=== PATIENT | female | born 1980 | race American Indian/Alaskan Native ===

== ENCOUNTER → 2017-04-26 | Outpatient (CLI) | payer MEDICAID | LOC: SLR 11:00 | PROVIDERS: ATTEND Otolaryngology | DX: G47.30 Sleep apnea, unspecified (principal) | CPT/HCPCS: G0399 ==

== ENCOUNTER 2018-02-19 11:00 | Outpatient (CLI) | payer MEDICAID | END 2018-02-19 11:01 | disposition home or self-care (01) | LOC: SLR 11:00 | PROVIDERS: ATTEND Otolaryngology | DX: G47.30 Sleep apnea, unspecified (principal); G47.10 Hypersomnia, unspecified; E66.9 Obesity, unspecified | CPT/HCPCS: 95810 ==

== ENCOUNTER 2018-07-27 09:04 | Outpatient (CLI) | payer MEDICAID ==
[2018-07-31 15:08] LABS: Vitamin D, 25-OH, D2 9 ng/mL
== END 2018-07-27 09:05 | disposition home or self-care (01) ==
LOC: LAB 09:04
PROVIDERS: ATTEND Internal Medicine
DX: E55.9 Vitamin D deficiency, unspecified (principal); E66.01 Morbid (severe) obesity due to excess calories
CPT/HCPCS: 36415; 82306; 82607

== ENCOUNTER 2018-08-14 05:50 | Day surgery (SDC) | payer MEDICAID ==
[2018-08-14] MEDS ORDERED: NACL 0.9% 1000 ML 1,000 ML IV SCH (08:00)
[2018-08-14] MEDS ORDERED: VERSED ONE (08:08)
[2018-08-14] MEDS ORDERED: DIPRIVAN 10 MG/ML IV ONE (08:08)
--- NOTE | 2018-08-14 08:29 | Anesthesia Consultation ---
Anesthesia Consult and Med Hx Date of service: 08/14/18 - Airway Anesthetic Teeth Evaluation: Good ROM Head & Neck: Adequate Mental/Hyoid Distance: Adequate Mallampati Class: Class II Intubation Access Assessment: Probably Good - Pre-Operative Health Status ASA Pre-Surgery Classification: ASA3 Proposed Anesthetic Plan: MAC - Cardiovascular System Hx Hypertension: Yes - Other Systems Hx Obesity: Yes
--- NOTE | 2018-08-14 08:29 | Anesthesia Day of Surgery ---
Anesthesia Day of Surgery - Day of Surgery Patient Examined: Yes Patient H&P Reviewed: Yes Patient is NPO: Yes
[2018-08-14] MEDS ORDERED: XYLOCAINE MPF 2% ONE (08:30)
[2018-08-14 09:02] VITALS: BP 128/86
--- NOTE | 2018-08-14 13:44 | Operative Report ---
SURGEON: Sarthak Solares MD [employer]ER: Nely Fountain MD PREOPERATIVE DIAGNOSIS: Morbid obesity. POSTOPERATIVE DIAGNOSIS: Morbid obesity. PROCEDURE: EGD with biopsies. ANESTHESIA: MAC. COMPLICATIONS: None. SPECIMENS: Antral biopsies. BLEEDING: Minimal. INDICATIONS: The patient is a 38-year-old female with a history of morbid obesity. She is here for preoperative endoscopy in preparation for weight loss surgery. Informed consent was obtained. DESCRIPTION OF PROCEDURE: The patient was brought to the GI suite where she was placed in the left lateral decubitus position and underwent MAC anesthesia. A bite block was placed, and a time-out was called. A standard adult gastroscope was inserted into the oropharynx, down the esophagus, into the stomach. The pylorus was intubated and the duodenum examined up to the level of D1. There were no abnormalities. On withdrawal into the stomach in retroflexion view, there was no hiatal hernia. Antral biopsies were taken for H. pylori. The air and saliva was suctioned out. The patient tolerated the procedure well with no immediate complications and was transferred to the PACU in stable condition. FINDINGS: Normal EGD. JOB# [id number] [facility]
== END 2018-08-14 05:51 | disposition home or self-care (01) ==
LOC: GIO 05:50
PROVIDERS: ATTEND Specialist
DX: K29.50 Unspecified chronic gastritis without bleeding (principal); K30 Functional dyspepsia; E66.01 Morbid (severe) obesity due to excess calories; I10 Essential (primary) hypertension; B96.81 Helicobacter pylori [H. pylori] as the cause of diseases classified elsewhere; Z68.42 Body mass index [BMI] 45.0-49.9, adult; Z79.899 Other long term (current) drug therapy
CPT/HCPCS: 43239; 81025; 88305; 88342; J2250; J2704; J7030

== ENCOUNTER 2018-08-21 08:36 | Inpatient (IN) | payer MEDICAID ==
--- NOTE | 2018-08-20 12:05 | Anesthesia Consultation ---
Anesthesia Consult and Med Hx Date of service: 08/21/18 - Airway Anesthetic Teeth Evaluation: Good ROM Head & Neck: Adequate Mental/Hyoid Distance: Adequate Mallampati Class: Class II Intubation Access Assessment: Good - Pre-Operative Health Status ASA Pre-Surgery Classification: ASA3 Proposed Anesthetic Plan: General - Pulmonary Hx Asthma: Yes Hx Sleep Apnea: No (Neg sleep study) - Central Nervous System Hx Seizures: No (Migraines) Hx Back Pain: Yes Hx Psychiatric Problems: No - Gastrointestinal Hx Gastroesophageal Reflux Disease: Yes - Endocrine Hx Non-Insulin Dependent Diabetes: Yes (PRE-diabetes) - Hematic Hx Anemia: Yes - Other Systems Hx Cancer: No
[2018-08-20 12:10] LABS: Basophils % (Auto) 0.7 % (0.0-1.8); Eosinophils # (Auto) 0.1 K/mm3 (0.0-0.4); Eosinophils % (Auto) 2.7 % (0.0-4.3); Hematocrit 36.2 % (30.3-42.9); Lymphocytes # (Auto) 1.9 K/mm3 (1.2-5.4); Lymphocytes % (Auto) 43.5 % (13.4-35.0); Mean Corpuscular HGB Conc 33 % (30-34); Mean Corpuscular Volume 87 fl (79-97); Monocytes # (Auto) 0.3 K/mm3 (0.0-0.8); Monocytes % (Auto) 5.7 % (0.0-7.3); Platelet Count 287 K/mm3 (140-440); Red Blood Count 4.18 M/mm3 (3.65-5.03); Red Cell Distribution Width 14.3 % (13.2-15.2)
[2018-08-20 12:27] LABS: Alanine Aminotransferase 9 units/L (7-56); Chol/HDL Ratio 2.65 %; HDL Cholesterol 75 mg/dL (40-59); LDL Cholesterol,Direct 123 mg/dL (50-130)
[2018-08-20 13:09] LABS: BUN/Creatinine Ratio 11; Blood Urea Nitrogen 10 mg/dL (7-17); Hemolysis Index 7
[~2018-08-21 08:36] MED LIST: LACTATED RINGERS 1,000 ML IV SCH; MARCAINE-EPI 0.5%-1:200,000 INFILTRATI ONE; NACL 0.9% IR ONE; SUBLIMAZE IV PRN; TRANSDERM-SCOP TD NR; XYLOCAINE 1% 20 mL INFILTRATI ONE; ZOFRAN IV PRN
--- NOTE | 2018-08-21 09:52 | Anesthesia Day of Surgery ---
Anesthesia Day of Surgery - Day of Surgery Patient Examined: Yes Patient H&P Reviewed: Yes Patient is NPO: Yes
[2018-08-21] MEDS: LACTATED RINGERS 1,000 ML IV SCH ×2 (10:00→23:15)
[2018-08-21] MEDS ORDERED: SUBLIMAZE ONE ×2 (10:10→14:12)
[2018-08-21] MEDS ORDERED: XYLOCAINE MPF 2% ONE (10:10)
[2018-08-21] MEDS ORDERED: DECADRON ONE (10:10)
[2018-08-21] MEDS ORDERED: ZEMURON IV ONE (10:10)
[2018-08-21] MEDS ORDERED: DIPRIVAN 10 MG/ML IV ONE (10:11)
[2018-08-21] MEDS ORDERED: XYLOCAINE 1% 20 mL ONE ×2 (10:25→13:47)
[2018-08-21] MEDS ORDERED: MARCAINE-EPI 0.5%-1:200,000 INFILTRATI ONE ×3 (10:25→13:47)
[2018-08-21] MEDS ORDERED: ZOFRAN IV PRN (10:30)
[2018-08-21] MEDS ORDERED: NORCO PO PRN (10:30)
[2018-08-21] MEDS ORDERED: REGLAN IV PRN (10:30)
[2018-08-21] MEDS ORDERED: FLAGYL 500 MG/100 ML 500 MG/100 ML BAG IV NR (10:30)
[2018-08-21] MEDS ORDERED: APRESOLINE IV PRN (10:30)
[2018-08-21] MEDS ORDERED: ANCEF/STERILE WATER 2 GM/20 ML 2 GM/20 ML SYRINGE IV NR (10:30)
[2018-08-21] MEDS ORDERED: LOVENOX SUB-Q NR (10:30)
[2018-08-21] MEDS ORDERED: TRANSDERM-SCOP TD SCH (11:00)
[2018-08-21] MEDS ORDERED: WATER FOR IRRIG STERILE IR ONE (13:19)
[2018-08-21] MEDS ORDERED: NACL 0.9% IR ONE ×2 (13:25)
[2018-08-21] MEDS ORDERED: XYLOCAINE 1% 20 mL INFILTRATI ONE (13:25)
[2018-08-21] MEDS ORDERED: DILAUDID ONE (14:02)
[2018-08-21] MEDS ORDERED: BLOXIVERZ ONE (14:55)
[2018-08-21] MEDS ORDERED: ROBINUL ONE (14:55)
[2018-08-21] MEDS: DILAUDID IV PRN ×4 (15:20→22:54)
[2018-08-21] MEDS ORDERED: DEMEROL ONE (15:54)
[2018-08-21] MEDS: TORADOL IV SCH ×3 (17:00→22:55)
--- NOTE | 2018-08-21 17:33 | Post Anesthesia Evaluation ---
- Post Anesthesia Evaluation Patient Participated: Yes Airway Patent: Yes Stable Respiratory Function: Yes Nausea/Vomiting: No Temp > 96.8F: Yes Pain Manageable: Yes Adequeate Hydration: Yes Anesthesia Complications: No
--- NOTE | 2018-08-21 19:35 | Operative Report ---
SURGEON: Sarthak Solares MD ASSISTANTS: Nely Fountain MD, Fellow; Keven Mas MD, CSA. PREOPERATIVE DIAGNOSIS: Morbid obesity. POSTOPERATIVE DIAGNOSIS: Morbid obesity. OPERATIONS: 1. Laparoscopic Imtiaz-en-Y gastric bypass, 150 cm antecolic antegastric. 2. Upper endoscopy. ANESTHESIA: General endotracheal anesthesia. COMPLICATIONS: None. BLEEDING: Less than 15 mL. SPECIMENS: None. INDICATIONS: The patient is a 38-year-old female with a history of morbid obesity. She has undergone preoperative bariatric workup and presents for her planned operation. The risks, complications and alternatives have been explained to the patient and informed consent was obtained. DESCRIPTION OF PROCEDURE: The patient was brought to the operating room where she was placed in the supine position and underwent general endotracheal intubation. She received preoperative antibiotics and DVT prophylaxis. She was prepped and draped in the usual sterile fashion and then a time-out was called to ensure proper patient, indication, operation. Local analgesia was injected around the umbilicus and then a small stab incision was made at the base with insertion of a Veress needle. I was unable to get appropriate insufflation pressures; therefore, this was changed to the left upper quadrant with now appropriate pressures. The incision at the umbilicus was slightly widened and a 5-mm trocar was inserted easily. On intra-abdominal view, there is no injury, Veress was removed. Under direct visualization, a 12-mm port was placed to the right of the midclavicular line along with 5 mm ports in the right lateral, subxiphoid and left lateral quadrants. The ligament of Treitz was identified, and the bowel was run for 50 cm. The bowel was transected at this point with a white load stapler, and the staple line was cauterized for hemostasis. The bowel was run an additional 150 cm antegrade, and a jejunojejunostomy was then performed with another white load stapler. The common enterotomy was closed with another staple loads. The staple lines were cauterized after each fire for hemostasis. A Brolin stitch was placed with a 0 Surgidac suture and then the mesenteric defect was closed with a running mesenteric 0 Surgidac suture. After this, the liver retractor was inserted and the patient was repositioned in steep reverse Trendelenburg. She had no hiatal hernia; therefore, I did not dissect here. The angle of His was dissected free and she had some very small gastroesophageal fat pad that was dissected off. A 30-mL pouch was incised. This was accomplished with a retrogastric dissection using electrocautery and blunt dissection. The gastric pouch was created with several blue staple loads. The staple line was cauterized after each fire and then the Imtiaz limb was brought up to the gastric pouch with medial and lateral stay sutures. A gastrojejunostomy was then performed using electrocautery and a staple load. The common enterotomy was closed with 2 layers of running 2-0 V-Loc suture. A bowel clamp was placed on the Imtiaz limb and then I went above and did an upper endoscopy. On intraluminal view, there was no bleeding. The anastomosis was intact with no leak evident. After this, the air was suctioned out. The gastroscope was removed. One liter of normal saline was instilled into the right and left upper quadrants and all the ports were removed. Additional local was injected into all the port sites, and the wounds were then closed with 4-0 Monocryl. Sterile bandages were placed over top. The patient tolerated the procedure with no immediate complications and was transferred to the PACU in stable condition and counts were correct. FINDINGS: No hiatal hernia. Negative leak test. JOB# [id number] [facility]
[2018-08-21] MEDS: MYLICON PO PRN (22:54)
[2018-08-22] MEDS: DILAUDID IV PRN (04:43)
[2018-08-22] MEDS: TORADOL IV SCH (04:52)
[2018-08-22 06:03] LABS: Basophils % (Auto) 0.1 % (0.0-1.8); Hematocrit 36.1 % (30.3-42.9); Hemoglobin 11.8 gm/dl (10.1-14.3); Lymphocytes # (Auto) 0.9 K/mm3 (1.2-5.4); Lymphocytes % (Auto) 12.6 % (13.4-35.0); Mean Corpuscular HGB Conc 33 % (30-34); Mean Corpuscular Volume 88 fl (79-97); Monocytes # (Auto) 0.3 K/mm3 (0.0-0.8); Monocytes % (Auto) 3.6 % (0.0-7.3); Platelet Count 282 K/mm3 (140-440); Red Blood Count 4.12 M/mm3 (3.65-5.03); Red Cell Distribution Width 14.2 % (13.2-15.2)
[2018-08-22 06:54] LABS: Alanine Aminotransferase 16 units/L (7-56); Albumin 3.7 g/dL (3.9-5); BUN/Creatinine Ratio 11; Blood Urea Nitrogen 9 mg/dL (7-17); Calcium 8.7 mg/dL (8.4-10.2); Hemolysis Index 7
--- NOTE | 2018-08-22 07:33 | Discharge Summary ---
Providers - Providers Date of Admission: 08/21/18 08:36 Date of discharge: 08/22/18 Attending physician: ESTEFANY SOLARES Primary care physician: ISIDORO CHOI Hospitalization Reason for admission: postop Condition: Good Procedures: 08/21/18: Laparoscopic RYGB Hospital course: 38F admitted after her operation for routine postop care. She was managed on the general surgical floor. She had no acute events, tolerated a CLD, ambulated, pain controlled, and was dc home POD1. Disposition: DC-01 TO HOME OR SELFCARE Core Measure Documentation - Palliative Care Palliative Care/ Comfort Measures: Not Applicable - Core Measures Any of the following diagnoses?: none - VTE Discharge Requirements Deep Vein Thrombosis/Pulmonary Embolism Present on Admission: No - Acute PA Discharge Requirements Aspirin at discharge: No Reason for no aspirin on DC: Surgical contraindication - Heart Failure Discharge Requirements SHI/ARB for LVSD if EF <40%: Not Applicable - Stroke Discharge Requirements Statin for LDL = or >70 mg/dl on DC: Not Applicable Exam - Physical Exam Narrative exam: Gen: AAO, NAD Heart: RRR Lungs: CTAB Abd: MO, soft, NT, ND. Bandages c/d/i. Ext: No LE Edema - Constitutional Vitals: Temp Pulse Resp BP Pulse Ox 97.4 F L 70 20 131/84 95 08/22/18 04:43 08/22/18 04:43 08/22/18 04:43 08/22/18 04:43 08/22/18 04:43 Plan Diet: clear liquids Wound: keep clean and dry, per your surgeon's advice Special Instructions: no heavy lifting Additional Instructions: Stephen Solares as scheduled Follow up with: ISIDORO CHOI MD [Primary Care Provider] - 7 Days
[2018-08-22] MEDS: MYLICON PO PRN (09:00)
[2018-08-22] MEDS ORDERED: HCTZ PO SCH (10:00)
[2018-08-22] MEDS ORDERED: LOVENOX SUB-Q SCH (10:00)
[2018-08-22 11:25] VITALS: BP 121/69
== END 2018-08-22 13:57 | disposition home or self-care (01) | DRG 621 ==
LOC: 3A 08:36 → 3B-SURG 15:41
PROVIDERS: ADMIT Specialist; ATTEND Specialist
PROC: 0D164ZA Bypass Stomach to Jejunum, Percutaneous Endoscopic Approach (ICD-10-PCS; principal; 2018-08-21)
DX: E66.01 Morbid (severe) obesity due to excess calories (principal); E55.9 Vitamin D deficiency, unspecified; K21.9 Gastro-esophageal reflux disease without esophagitis; J45.909 Unspecified asthma, uncomplicated; E11.9 Type 2 diabetes mellitus without complications; Z72.89 Other problems related to lifestyle
CPT/HCPCS: 36415; 80053; 80061; 81025; 84703; 85025; 94760; G0378; A4217; J0690; J1100; J1170; J1650; J1885; J2175; J2405; J2704; J2710; J2765; J3010; J7120

== ENCOUNTER 2018-08-22 23:34 | Emergency (ER) | payer MEDICAID ==
[2018-08-23 00:15] VITALS: BP 157/108
== END 2018-08-23 00:20 | disposition left against medical advice (07) ==
LOC: ED 23:34
DX: R06.00 Dyspnea, unspecified (principal); R10.9 Unspecified abdominal pain; Z53.21 Procedure and treatment not carried out due to patient leaving prior to being seen by health care provider